=== PATIENT | male | born 1965 | race Caucasian/White ===

== ENCOUNTER 2018-07-07 11:28 | Emergency (ER) | payer OTHER ==
[2018-07-07 11:58] VITALS: BMI 29.3
[2018-07-07 12:00] VITALS: TEMP 97.8
[2018-07-07] MEDS ORDERED: Lidocaine 1% Inj (20ml) IJ STA (12:15)
[2018-07-07] MEDS ORDERED: Tmp-Smz 800 mg-160 mg DS Tab PO STA (12:17)
--- NOTE | 2018-07-07 12:35 | ED PDOC ---
Arrival/HPI - General Chief Complaint: Finger,Hand,&Wrist Time Seen by Provider: 07/07/18 12:00 Historian: Patient - History of Present Illness Narrative History of Present Illness (Text): 07/07/18 12:41 53 year old male with no significant PMH presents to the emergency department complaining of right hand 3rd digit pain and swelling x 10 days. Gradually worsening pain and swelling to the distal end of the 3rd digit with a collection of pus near the nail. Denies trauma,/injury, open wounds, fever, chills, numbness, paresthesias, weakness, or any other associated symptoms. Past Medical History - Provider Review Nursing Documentation Reviewed: Yes - Infectious Disease Hx of Infectious Diseases: None - Tetanus Immunization Tetanus Immunization: Unknown - Cardiac Hx Cardiac Disorders: No - Pulmonary Hx Respiratory Disorders: No - Neurological Hx Neurological Disorder: No - HEENT Hx HEENT Disorder: No - Renal Hx Renal Disorder: No - Endocrine/Metabolic Hx Endocrine Disorders: No - Hematological/Oncological Hx Blood Disorders: No - Integumentary Hx Dermatological Disorder: No - Musculoskeletal/Rheumatological Hx Musculoskeletal Disorders: No - Gastrointestinal Hx Gastrointestinal Disorders: No - Genitourinary/Gynecological Hx Genitourinary Disorders: No - Psychiatric Hx Psychophysiologic Disorder: No Hx Substance Use: No - Surgical History Hx Amputation: No Hx Appendectomy: No Hx Cardiac Catheterization: No Hx Cholecystectomy: No Hx Coronary Stent: No Hx Gastric Bypass Surgery: No Hx Hysterectomy: No Hx Inguinal Hernia Repair: No Hx Joint Replacement: No Hx Kidney Transplant: No Hx Liver Transplant: No Hx Mastectomy: No Hx Musculoskeletal Surgery: No Hx Open Heart Surgery: No Hx Orthopedic Surgery: No Hx Splenectomy: No Hx Valve Replacement: No Family/Social History - Physician Review Nursing Documentation Reviewed: Yes Family/Social History: No Known Family HX Smoking Status: Former Smoker Hx Alcohol Use: No Hx Substance Use: No Allergies/Home Meds Allergies/Adverse Reactions: Allergies ampicillin Allergy (Verified 07/07/18 12:00) .unknown Review of Systems - Physician Review All systems were reviewed & negative as marked: Yes - Review of Systems Constitutional: Normal. absent: Fevers Eyes: Normal. absent: Vision Changes ENT: Normal. absent: Sore Throat, Sinus Congestion Respiratory: Normal. absent: SOB, Cough Cardiovascular: Normal. absent: Chest Pain, Palpitations, Syncope Gastrointestinal: Normal. absent: Abdominal Pain, Nausea, Vomiting Genitourinary Male: Normal. absent: Dysuria, Frequency Musculoskeletal: Arthralgias (right hand 3rd digit) Skin: Other (right hand 3rd digit paronychia). absent: Rash Neurological: Normal. absent: Headache, Dizziness, Focal Weakness, Gait Changes, Disequilibrium Endocrine: Normal Hemo/Lymphatic: Normal Psychiatric: Normal Physical Exam Vital Signs Reviewed: Yes Vital Signs Temp Pulse Resp BP Pulse Ox 07/07/18 11:58 97.8 F 64 16 118/80 99 Temperature: Afebrile Blood Pressure: Normal Pulse: Regular Respiratory Rate: Normal Appearance: Positive for: Well-Appearing, Non-Toxic, Comfortable Pain Distress: None Mental Status: Positive for: Alert and Oriented X 3 - Systems Exam Head: Present: Atraumatic, Normocephalic Pupils: Present: PERRL Extroacular Muscles: Present: EOMI Conjunctiva: Present: Normal Mouth: Present: Moist Mucous Membranes Neck: Present: Normal Range of Motion Respiratory/Chest: Present: Clear to Auscultation, Good Air Exchange. No: Respiratory Distress, Accessory Muscle Use Cardiovascular: Present: Regular Rate and Rhythm, Normal S1, S2. No: Murmurs Back: Present: Normal Inspection. No: CVA Tenderness Upper Extremity: Present: Normal ROM, NORMAL PULSES, Tenderness (right hand tip of 3rd digit), Swelling (right hand tip of 3rd digit), Erythema (right hand 3rd digit), Neurovascularly Intact, Capillary Refill < 2s, Other (right hand 3rd digit paronychia. FROM. full strength.). No: Cyanosis, Edema Lower Extremity: Present: Normal Inspection, NORMAL PULSES, Normal ROM, Neurovascularly Intact, Capillary Refill < 2 s. No: Edema Neurological: Present: GCS=15, CN II-XII Intact, Speech Normal Skin: Present: Warm, Dry, Normal Color. No: Rashes Psychiatric: Present: Alert, Oriented x 3, Normal Insight, Normal Concentration Medical Decision Making ED Course and Treatment: 07/07/18 12:30 Initial Plan: * Paronychia drainage * Wound Culture * Bactrim Patient tolerated procedure well without complication (see procedure note), wound cultures sent. Wound dressed in bacitracin and sterile dressing by nursing. Diagnostic testing and plan of care discussed with patient. Strict instructions given regarding prescription use, importance of followup, and signs/symptoms to return to ER including fever, chills, worsening pain, or any other new/worsening symptoms. Patient verbalizes understanding of instructions and was given the opportunity to ask questions. Patient A&Ox3, ambulating with steady gait, with vital signs stable for discharge. - Medication Orders Current Medication Orders: Discontinued Medications Lidocaine HCl (Lidocaine 1% (20ml)) 10 ml IJ STAT STA Stop: 07/07/18 12:16 Trimethoprim/Sulfamethoxazole (Bactrim Ds Tab) 1 tab PO STAT STA; Protocol Stop: 07/07/18 12:18 Last Admin: 07/07/18 12:26 Dose: 1 tab Procedures - Time-Out Type of Procedure: Paronychia Drainage Site of Procedure: Right hand 3rd digit Correct Patient (with visual ID + MR# on ID Band): Yes Correct Procedure: Yes Correct Site Marked: Yes X-Ray Marked: NA Medication Reconciliation / Bloodwork / Allergies Checked: Yes Physician Name: Darius RN Name: Ramona MAYA/Tech: Vaishali - Incision and Drainage Site: Right hand 3rd digit Blade Size: 11 I & D Procedure: betadine prep, sterile drapes applied, sterile dressing applied Progress: Digit anesthesized using digital block with 6 cc 1% lidocaine without epinephrine Area prepped with betadine. Skin around right hand 3rd digit nail lifted with 11 blade, approx 2cc purulent fluid drained, drainage cultured. Finger dressed with bacitracin and sterile dressing Patient tolerated procedure well without complication. Disposition/Present on Arrival - Present on Arrival Any Indicators Present on Arrival: No History of DVT/PE: No History of Uncontrolled Diabetes: No Urinary Catheter: No History of Decub. Ulcer: No History Surgical Site Infection Following: None - Disposition Have Diagnosis and Disposition been Completed?: Yes Diagnosis: Paronychia Disposition: HOME/ ROUTINE Disposition Time: 13:30 Patient Plan: Discharge Condition: IMPROVED Discharge Instructions (ExitCare): Parosarya (DC) Print Language: MOHAWK Additional Instructions: Remojos calientes con sales de [place] 4-5 veces al da 10-20 minutos cada rebecca Concho antibiticos cada 12 horas sara 7 reardon. mantener la herida limpia, seca y cubierta Seguimiento con clnica o mdico primario en 2 reardon. Regrese a la yomi de emergencias para cualquier sntoma nuevo / que empeora. Prescriptions: Bacitracin Ointment [Bacitracin] 1 appl TD DAILY #1 tube Sulfamethoxazole/Trimethoprim [Bactrim DS 800 mg-160 mg] 1 tab PO Q12H #14 tab Referrals: Yamilex Willson MD [Medical Doctor] - Follow up with primary [facility] [Outside] - Follow up with primary Forms: [facility] (Jamaican), WORK NOTE
[2018-07-07] MEDS ORDERED: Bacitracin 500 Units/gm Oint Foilpak UD TOP ONE (13:35)
[2018-07-07 13:57] VITALS: BP 118/82; PULSE 72; RESP 18; O2SAT 100
== END 2018-07-07 14:00 | disposition home or self-care (01) ==
LOC: ED 11:28
DX: L03.011 Cellulitis of right finger (principal)